=== PATIENT | male | born 1945 | race Caucasian/White ===

== ENCOUNTER 2017-02-13 05:24 | Day surgery (SDC) | payer MEDICARE, OTHER ==
[2017-02-07 10:14] LABS: HEMATOCRIT 43.3 % (40.0-51.0); HEMOGLOBIN 14.4 g/dL (13.6-17.8)
[2017-02-07 10:33] LABS: ASCORBIC ACID (UR NOT ORDER) 20 (NEG); BILIRUBIN, URINE NEGATIVE (NEG); KETONE, URINE NEGATIVE (NEG); LEUKOCYTE ESTERASE(NOT OR NEG (NEG); WBC (NOT ORDERED) (RFLEX) < 1 (0-5)
--- NOTE | ~2017-02-13 | OP ---
Record Of Operation [facility] [address] [place]. [address] NAME: FABY RYAN : 45 STATUS : [facility]#: [id number] AGE: 71 ADM/REG DATE : 02/13/17 MR#: [id number] REPORT SERV DATE: 02/14/17 DICTATED BY: PAVAN IQBAL DATE: 02/13/17 REPORT STATUS : Draft TRANSCRIBED BY: MODL DATE: 02/13/17 DATE OF PROCEDURE: 02/13/2017 PREOPERATIVE DIAGNOSIS: Right knee medial meniscal tear. 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 PROCEDURE PERFORMED: Right knee arthroscopy with partial medial lateral meniscectomy, extensive synovectomy, and debriding chondroplasty of the medial femoral condyle. SURGEON: Pavan Iqbal M.D. KEYBOARD ACTION ASSEMBLER: Angel Luis Ray. ANESTHESIA: General. PROCEDURE IN DETAIL: The patient was clearly identified and after obtaining informed consent, was brought to the operating room at [facility] where he was induced under general anesthesia as his right lower extremity prepped and draped in usual manner. This concluded, after appropriate time-out procedure was performed. A 30 mL of saline were instilled in the joint after elevation and exsanguination with Raman wrap followed by tourniquet elevation to 350 mmHg. Anteromedial and anterolateral portals formed. Of note, an appropriate time-out procedure was performed. Synovitis was noted throughout the joint which was carefully debrided in a formal synovectomy. There was an anterolateral band of tissue as was noted on the contralateral knee in the past which was debrided as well which seems to have been rubbing across the lateral femoral condyle. The patellofemoral tracking was excellent. ACL and PCL were intact. The medial compartment reveals a lateral aspect of the weightbearing medial femoral condylar area to have a large chondral flap tear which was carefully debrided and smoothed the edge as stable. The meniscus itself has a complex tear which was treated with a partial medial meniscectomy. The lateral meniscus had some fraying but extent somewhat deeper into the meniscus such that a partial lateral meniscectomy was performed for proper treatment. This concluded, the joints inspected, realizing no further care was necessary. It was copiously irrigated with outflow cannula and drained. The portals were closed. Ropivacaine and morphine were instilled in the joint. At which point, the leg was carefully cleansed and dressed. The patient was allowed to awaken and was transferred to the recovery room in stable condition having tolerated the procedure well. ESTIMATED BLOOD LOSS: 5 mL. FLUIDS: 1100 mL. TOURNIQUET TIME: Approximately 30 minutes. PATHOLOGY: None. Record Of Operation [address] [address] NAME: FABY RYAN : 45 STATUS : [facility] PAT#: [id number] AGE: 71 ADM/REG DATE : 02/13/17 MR#: [id number] REPORT SERV DATE: 02/14/17 DICTATED BY: PAVAN IQBAL DATE: 02/13/17 REPORT STATUS : Draft TRANSCRIBED BY: MYCHAL DATE: 02/13/17 MICROBIOLOGY: None. COMPLICATIONS: None. SPONGE AND NEEDLE COUNTS: Reportedly correct. ANTIBIOTICS: Administered appropriately preoperatively and ordered to be discontinued at the conclusion of the case. HAYDE/MYCHAL Pavan Iqbal M.D. / [id number] CC: Amanda Logan M.D.
[~2017-02-13 05:24] MED LIST: ACIPHEX PO; ADVIL MIGRAI200 MG PO; ADVIL PO; AMB10 PO; AMIT25 PO; ASAB PO; AVODART PO; COQ 10 PO; COQ-10200 MG OR; CYANO1000T PO; EXCEDRINTB PO; FLOMAX4 PO; FLONASE NAS; GLUCOSAMINEPO PO; LIPITOR10 PO; LIPOTRIAD1 CAP PO; MOBIC15 MG PO; MULTIPLE VIT PO; NASAREL29 MCG; PCET PO; PRILO PO; PROMEGA PO; RESTASIS; VITAMIN B-121000 MC1 SL; VITAMIN D31000 UNIT PO; ZYRTEC ALLGY10 MG PO
== END 2017-02-13 13:31 | disposition home or self-care (01) ==
LOC: SDC 05:24
PROVIDERS: Orthopaedic Surgery
PROC: 0SBC4ZZ Excision of Right Knee Joint, Percutaneous Endoscopic Approach (ICD-10-PCS; principal; 2017-02-13 06:45)
DX: M23.205 Derangement of unspecified medial meniscus due to old tear or injury, unspecified knee (principal); M17.11 Unilateral primary osteoarthritis, right knee; M25.561 Pain in right knee; Z88.0 Allergy status to penicillin; Z88.5 Allergy status to narcotic agent; K21.9 Gastro-esophageal reflux disease without esophagitis; Z98.41 Cataract extraction status, right eye; Z98.42 Cataract extraction status, left eye
CPT/HCPCS: 81001; 85014; 85018; A9270-GY; J0690; J2250; J2274; J2795; J3010